=== PATIENT | male | born 1950 | race Caucasian/White ===

== ENCOUNTER → 2016-11-11 | Outpatient (CLI) | payer BC ==
--- NOTE | 2016-11-11 17:21 | PCVCIMAG ---
APPROVED REPORT Exam: Stress Echocardiogram Indication: Atrial Fibrillation Patient Location: Echo lab Stress Nurse: Jennifer Urias RN Status: routine Ht: 6 ft 0 in HR: 58 bpm BP: 140/80 mmHg Procedure The patient underwent an Exercise Stress Test using the Mack Protocol. Blood pressure, heart rate, and EKG were monitored. An Echocardiogram was performed by metallurgical technician in four stages in quad fashion. At peak stress, four selected images were obtained and placed side by side with resting images for comparison. Stress Test Details Stress Test: Exercise stress testing was performed using a Mack protocol. HR Resting HR: 58 bpmMax Heart Rate (APMHR): 154 bpm Target HR (85% APMHR): 130 bpm HR response to stress: Normal HR response to stress BP Resting BP: 140/80 mmHg Max BP: 220/78 mmHg ECG Resting ECG: Sinus Rhythm Stress ECG: Sinus Rhythm Arrhythmia: Atrial fibrillation, SVT Clinical Reason for Termination: Maximal effort Exercise duration: 12 min sec Highest Stage Achieved: Stage 4: 4.2 mph at 16% grade. Overall Exercise Capacity for Age: Good Pre-Stress Echo The resting Echocardiogram showed normal left ventricular contractility with an estimated Ejection Fraction of about >55%. Normal wall motion in all segments on baseline images. Post-Stress Echo The stress Echocardiogram showed normal left ventricular contractility with an estimated Ejection Fraction of about 60-65%. Normal augmentation of wall motion in all segments on post stress images. Clinical No clinical or ECG evidence for ischemia. Conclusion Clinical Response: Non-ischemic Exercise Capacity: Superior Stress ECG Response: Non-ischemic Stress Echo Images: Non-ischemic Other Information Study Quality: Good
== END | disposition home or self-care (01) ==
LOC: PCVCIMAG 13:52
PROVIDERS: ATTEND Internal Medicine Cardiovascular Disease
DX: I48.0 Paroxysmal atrial fibrillation (principal); I47.1 Supraventricular tachycardia; I10 Essential (primary) hypertension; E78.00 Pure hypercholesterolemia, unspecified
CPT/HCPCS: 93325; 93351

== ENCOUNTER → 2018-01-06 | Outpatient (CLI) | payer BC ==
--- NOTE | 2018-01-06 11:08 | PCVCIMAG ---
APPROVED REPORT Study performed: 01/06/2018 10:03:11 EXAM: Limited 2D and color flow Echocardiogram Patient Location: Echo lab Room #: 3Status: routine BSA: 1.99 HR: 51 bpmBP: 140/80 mmHg Rhythm: NSR Other Information Study Quality: Good Risk Factors: Cardiac Risk Factors: HTN, Hyperlipidemia Indications Atrial Fibrillation CAD S/P NE, Stent x 2 2D Dimensions IVSd: 8.56 (7-11mm)LVOT Diam: 24.96 (18-24mm) LVDd: 46.90 mm PWd: 8.62 (7-11mm)Ascending Ao: 35.15 (22-36mm) LVDs: 22.49 (25-40mm) Left Atrium: 27.84 (27-40mm) Aortic Root: 33.93 mm LV Single Plane 4CH: 62.66 % LV Single Plane 2CH: 57.89 % Biplane EF: 58.3 % Volumes Left Atrial Volume (Systole) Single Plane 4CH: 48.72 mLSingle Plane 2CH: 64.36 mL Biplane LA Volume: 63.00 mLLA ESV Index: 31.00 mL/m2 Aortic Valve AoV Peak Nikunj.: 1.15 m/s AO Peak Gr.: 5.33 mmHgLVOT Max P.39 mmHg LVOT Max V: 1.05 m/s DANIEL Vmax: 4.44 cm2 AI Vmax: 3.76 m/s AI [place]: 2.11 m/s2 AI PHT: 516.12 ms Mitral Valve E/A Ratio: 1.2 MV Decel. Time: 190.84 ms MV E Max Nikunj.: 0.59 m/s MV A Nikunj.: 0.49 m/s MV PHT: 55.34 ms IVRT: 117.65 ms TDI E/Lateral E': 8.43E/Medial E': 9.83 Medial E' Nikunj.: 0.06 m/s Lateral E' Nikunj.: 0.07 m/s Pulmonary Vein P Vein S: 0.57 m/sP Vein A: 0.35 m/s P Vein D: 0.47 m/sP Vein A Dur.: 117.6 msec P Vein S/D Ratio: 1.21 Tricuspid Valve TR Peak Nikunj.: 2.11 m/s TR Peak Gr.: 17.76 mmHg TV Vmax: 0.84 m/sPA Pressure: 25.00 mmHg Left Ventricle The left ventricle is normal size. There is normal LV segmental wall motion. There is normal left ventricular wall thickness. Left ventricular systolic function is normal. The left ventricular ejection fraction is within the normal range. LVEF is 55-60%. The left ventricular diastolic function is normal. Right Ventricle The right ventricle is normal size. The right ventricular systolic function is normal. Atria The left atrium size is normal. The right atrium size is normal. Aortic Valve Aortic valve is trileaflet. Mild aortic valve sclerosis. Mild aortic regurgitation. There is no aortic valvular stenosis. Mitral Valve The mitral valve is normal in structure. There is no mitral valve regurgitation noted. No evidence of mitral valve stenosis. Tricuspid Valve The tricuspid valve is normal in structure. Mild tricuspid regurgitation with a PA pressure of 25 mmHg. No pulmonary hypertension. Pulmonic Valve The pulmonary valve is normal in structure. There is no pulmonic valvular regurgitation. Great Vessels The aortic root is normal in size. The ascending aorta is normal in size. Aortic arch is normal in caliber. IVC is normal in size and collapses >50% with inspiration. Pericardium There is no pericardial effusion. There is no pleural effusion. <Conclusion> The left ventricle is normal size. LVEF is 55-60%. The left ventricular diastolic function is normal. The right ventricle is normal size. The left atrium size is normal. Aortic valve is trileaflet. Mild aortic valve sclerosis. Mild aortic regurgitation. There is no mitral valve regurgitation noted. Mild tricuspid regurgitation with a PA pressure of 25 mmHg. No pulmonary hypertension. The aortic root is normal in size. There is no pericardial effusion.
== END | disposition home or self-care (01) ==
LOC: PCVCIMAG 11:54
PROVIDERS: ATTEND Internal Medicine Cardiovascular Disease
DX: I48.91 Unspecified atrial fibrillation (principal); I07.1 Rheumatic tricuspid insufficiency
CPT/HCPCS: 93306

== ENCOUNTER → 2018-01-21 | Outpatient (CLI) | payer BC ==
[~2018-01-21] MED LIST: REGADENOSON 0.4 MG/5 ML DISP.SYRIN. IV ONE
--- NOTE | 2018-01-22 16:21 | PCVCIMAG ---
APPROVED REPORT Imaging Protocol: Rest Tc-99m/Stress Tc-99m 1 day Study performed: 01/21/2018 09:46:50 Indication: CAD , Paroxysmal Atrial Fibrillation Patient Location: Out-Patient Stress Nurse: Wendy Mcdaniels RN MN Tech:PIO Pak Ht: 6 ft 0 in Wt: 170 lbs BSA: 1.99 m2 HR: 60 bpm BP: 187/95 mmHg BMI: 23.0 Rhythm: Sinus Rhythm, 1st degree Medical History Medications: Atorvastatin, Proscar, Eliquis, Metoprolol, Olmesartan-HCTZ, Effient, Flecainide Allergies: Sulfa Cardiac Risk Factors: Age, HTN, Hyperlipidemia, CAD, [place] Previous Cardiac Procedures: PCI(RCA 2017) Pretest Chest Pain Characteristics: No chest pain Meds Held (24 hrs): Metoprolol Resting Data Rest SPECT myocardial perfusion imaging was performed in supine position 45 minutes following the intravenous injection of 11.1 mCi of Tc-99m Sestamibi. Time of rest injection: 904 Date: 01/21/2018 Administration Route: IV Administration Site: Right Hand Pharmacologic Stress Pharmacologic stress test was performed by injecting Regadenoson 0.4 mg IV push over 10-15 seconds immediately followed by the intravenous injection of 30.2 mCi of Tc-99m Sestamibi. Time of stress injection: 1014 Date: 01/21/2018 Administration Route: IV Administration Site: Right Hand Gated Stress SPECT was performed 45 minutes after stress injection. The images were gated to evaluate regional wall motion and calculate left ventricular ejection fraction. Stress Test Details Stress Test: Pharmacologic stress was paired with low level exercise. Reason for pharmacologic stress test: Afib, meds. HRMax Heart Rate (APMHR): 153 bpm Resting HR: 60 bpmTarget HR (85% APMHR): 130 bpm Max HR Achieved: 92 bpm % of APMHR: 60 Recovery HR: 66 bpm BP Resting BP: 187/95 mmHg Recovery BP: 168/87 mmHg ECG Resting ECG: Sinus Rhythm, 1st Degree Stress ECG: Sinus Rhythm, 1st Degree Arrhythmia: PVCs Recovery ECG: Sinus Rhythm, 1st Degree Clinical Reason for Termination: Completed protocol Stress Symptoms: Chest Heaviness, Dyspnea, Lightheaded Symptoms resolved during recovery. Stress ECG Conclusion ECG: Non-ischemic Study Quality Study: Good Study Data Post stress, the left ventricular ejection was 74%.. SSS: 1 SRS: 3 SDS: 0 TID = 0.90. Perfusion No evidence of stress induced ischemia or prior myocardial infarction. Wall Motion Normal left ventricular size and function with no regional wall motion abnormalities. Nuclear Conclusion No evidence of stress induced ischemia or prior myocardial infarction. Normal left ventricular size and function with no regional wall motion abnormalities. Post stress, the left ventricular ejection was 74%. No prior study available for comparison. Interpreted by: Finn Acosta MD Electronically Approved: 01/21/2018 17:34:45 <Conclusion> ECG: Non-ischemic
== END | disposition home or self-care (01) ==
LOC: PCVCIMAG 08:49
PROVIDERS: ATTEND Internal Medicine Cardiovascular Disease
DX: I25.10 Atherosclerotic heart disease of native coronary artery without angina pectoris (principal); I48.0 Paroxysmal atrial fibrillation
CPT/HCPCS: 78452; 93017; A9500; J2785

== ENCOUNTER → 2018-04-13 | Outpatient (CLI) | payer BC ==
[~2018-04-13] MED LIST changes: +IV NORMAL SALINE 500ML BAG 500 ML ONE; +MIDAZOLAM HCL/PF 2 MG/2 ML VIAL. ONE; -REGADENOSON 0.4 MG/5 ML DISP.SYRIN. IV ONE; +fentaNYL PF VIAL 100 MCG/2 ML VIAL ONE
--- NOTE | 2018-04-13 10:32 | PCVCIMAG ---
APPROVED REPORT Study performed: 04/13/2018 09:14:03 EXAM: Transesophageal Echocardiogram Patient Location: [facility] Room #: 1 Status: routine BSA: 2.01 HR: 56 bpmBP: 153/71 mmHg Rhythm: NSR,bradycardia Other Information Study Quality: Good Indications Atrial Fibrillation Pre-ablation workup Echo Enhancing Agent Indication: Rule out Shunt Agent(s) / Amount(s) Used: Agitated Saline 10 cc Comments: Negative contrast study for shunt flow. Procedure After obtaining informed consent, patient underwent transesophageal echo in the [facility]. Type of Sedation : Conscious Sedation Sedation was administered by Radha Webster RN. Sedation start time: 9:29 Case end Time: 9:43 Sedation was achieved intravenously with: Versed (4 mg) Fentanyl (100 mcg) Transesophageal probe was inserted and advanced into esophagus without difficulty by Massimo Seymour MD. Echo enhancement indication: R/O Septal defect. Echo enhancement agent administered: Agitated Saline The JOI was performed without complications. Throughout the procedure, the blood pressure, pulse oximetry, cardiac rhythm, and rate were monitored. The patient tolerated the procedure without adverse effects. Recovery from conscious sedation was uneventful and vital signs were stable. Left Ventricle The left ventricle is normal size. There is normal LV segmental wall motion. There is normal left ventricular wall thickness. The left ventricular systolic function is normal. The left ventricular ejection fraction is within the normal range. LVEF is 55-60%. This study is not technically sufficient to allow evaluation of the LV diastolic function. Right Ventricle The right ventricle is normal size. Atria The left atrium size is normal. No thrombus is visualized in the left atrium or appendage. Injection of bubbles documented no shunt. The right atrium size is normal. Aortic Valve Aortic valve is trileaflet, mildly sclerotic. Mild aortic regurgitation There is no aortic valvular stenosis. Mitral Valve Mild mitral valve prolapse Mild mitral regurgitation. No evidence of mitral valve stenosis. Tricuspid Valve The tricuspid valve is normal in structure. There is no tricuspid valve regurgitation noted. Pulmonic Valve The pulmonary valve is normal in structure. There is trivial pulmonic valvular regurgitation. Great Vessels The aortic root is normal in size. The ascending aorta is normal in size. Aortic arch is normal in caliber. IVC is not visualized. Pericardium There is no pericardial effusion. There is no pleural effusion. <Conclusion> The left ventricular systolic function is normal. There is normal LV segmental wall motion. LVEF is 55-60%. Injection of bubbles documented no shunt. The left and right atrial sizes are normal. No thrombus is visualized in the left atrium or appendage. Aortic valve is trileaflet, mildly sclerotic. Mild aortic regurgitation, no stenosis Mild mitral valve prolapse. Mild mitral regurgitation. There is no pericardial effusion.
== END | disposition home or self-care (01) ==
LOC: PCVCINTER 08:56
PROVIDERS: ATTEND Internal Medicine
DX: I48.0 Paroxysmal atrial fibrillation (principal); I08.0 Rheumatic disorders of both mitral and aortic valves; I10 Essential (primary) hypertension; I25.10 Atherosclerotic heart disease of native coronary artery without angina pectoris
CPT/HCPCS: 93312; 93325; 99152; J2250; J3010; J7040

== ENCOUNTER → 2019-02-17 | Outpatient (CLI) | payer BC ==
--- NOTE | 2019-02-17 14:01 | PCVCIMAG ---
APPROVED REPORT Study performed: 02/17/2019 12:24:09 Exam: Stress Echocardiogram Indication: CAD , Atrial Fibrillation Patient Location: Echo lab Stress Nurse: Wendy Mcdaniels RN Status: routine Ht: 6 ft 0 in HR: 65 bpm BP: 180/110 mmHg Rhythm: NSR Medical History Medical History: Atrial Fibrillation, CAD s/p stent, Hyperlipidemia, HTN Procedure The patient underwent an Exercise Stress Test using the Mack Protocol. Blood pressure, heart rate, and EKG were monitored. An Echocardiogram was performed by control systems technician in four stages in quad fashion. At peak stress, four selected images were obtained and placed side by side with resting images for comparison. Stress Test Details Stress Test: Exercise stress testing was performed using a Mack protocol. HR Resting HR: 65 bpmMax Heart Rate (APMHR): 152 bpm Max HR Achieved: 173 bpmTarget HR (85% APMHR): 129 bpm % of APMHR: 113 Recovery HR: 116 bpm HR response to stress: Accelerated HR response to stress BP Resting BP: 180/110 mmHg Max BP: 220/100 mmHg Recovery BP: 164/94 mmHg BP response to stress: Abnormal hypertensive response to stress. ECG Resting ECG: Sinus Rhythm Stress ECG: Atrial Fibrillation Recovery ECG: Atrial Fibrillation Clinical Reason for Termination: Maximal effort Exercise duration: 11 min 16 sec Highest Stage Achieved: Stage 3: 3.4 mph at 14% grade. Exercise capacity: 13.40 METs Overall Exercise Capacity for Age: Good Pre-Stress Echo The resting Echocardiogram showed normal left ventricular contractility with an estimated Ejection Fraction of about 55-60%. Normal wall motion in all segments on baseline images. Post-Stress Echo The stress Echocardiogram showed normal left ventricular contractility with an estimated Ejection Fraction of about 60-65%. Normal augmentation of wall motion in all segments on post stress images. Clinical No clinical or ECG evidence for ischemia. Conclusion Clinical Response: Non-ischemic Exercise Capacity: Superior Stress ECG Response: Indeterminant Stress Echo Images: Non-ischemic The left ventricle is normal in size and wall thickness in both the rest and stress images. Trace mitral and aortic insufficiency. No other significant valvular abnormalities. Patient was given 400mg po Amiodarone post exercise echo. Other Information Study Quality: Good <Conclusion> The left ventricle is normal in size and wall thickness in both the rest and stress images. Trace mitral and aortic insufficiency. No other significant valvular abnormalities. Patient was given 400mg po Amiodarone post exercise echo.
== END | disposition home or self-care (01) ==
LOC: PCVCIMAG 11:48
PROVIDERS: ATTEND Internal Medicine Cardiovascular Disease
DX: E78.00 Pure hypercholesterolemia, unspecified (principal); E78.5 Hyperlipidemia, unspecified; Z82.49 Family history of ischemic heart disease and other diseases of the circulatory system; Z91.89 Other specified personal risk factors, not elsewhere classified; Z88.1 Allergy status to other antibiotic agents
CPT/HCPCS: 93325; 93351